=== PATIENT | male | born 1980 | race Caucasian/White ===

== ENCOUNTER 2020-09-23 15:41 | Emergency (ER) | payer BC ==
--- NOTE | 2020-09-23 17:41 | EDPHYS ---
Physician Documentation [facility] Name: Duc Johnson Age: 40 yrs Sex: Male : 1980 Arrival Date: 09/23/2020 Time: 15:44 Bed 23 Private MD: ED Physician Luan Yarbrough HPI: 09/23 17:30 This 40 yrs old Male presents to ER via Ambulatory with complaints of Ear cp Pain. 17:30 The patient presents with pain, that is acute. The complaints affect the right ear. cp Onset: The symptoms/episode began/occurred last week. Associated signs and symptoms: Pertinent positives: decreased hearing, Pertinent negatives: cough, sore throat. Severity of symptoms: in the emergency department the symptoms are unchanged despite home interventions. Historical: - Allergies: 16:15 Sulfa (Sulfonamide Antibiotics); ll1 - PMHx: 16:15 None; ll1 - PSHx: 16:15 back surgery; ll1 - Immunization history:: Flu vaccine is up to date. - Social history:: Smoking status: Patient denies any tobacco usage or history of. ROS: 17:35 Constitutional: Negative for body aches, chills, fever. cp 17:35 ENT: Positive for drainage from ear(s), ear pain, of the right ear, decreased hearing cp right ear. 17:35 Respiratory: Negative for cough. 17:35 Skin: Negative for rash. 17:35 Neuro: Negative for dizziness, headache. 17:35 All other systems are negative. Exam: 17:40 Head/Face: Normocephalic, atraumatic. cp 17:40 Constitutional: The patient appears in no acute distress, alert, awake, comfortable, non-toxic, well developed, well nourished. 17:40 Eyes: Periorbital structures: appear normal, Conjunctiva: normal, no exudate, no cp injection, Lids and lashes: appear normal, bilaterally. 17:40 ENT: External ear(s): are unremarkable, Ear canal(s): cerumen impaction, that is moderate, bilaterally, Nose: is normal, Mouth: is normal, right ear irrigated to remove cerumen and TM visualized. TM appears with erythema. 17:40 Chest/axilla: Inspection: normal. 17:40 Cardiovascular: Rate: normal. 17:40 Skin: cellulitis, is not appreciated, no rash present. Vital Signs: 16:16 BP 116 / 80; Pulse 88; Resp 17; Temp 98.5; Pulse Ox 98% ; Weight 90.72 kg; Height 5 ft. ll1 11 in. (180.34 cm); Pain 7/10; 16:16 Body Mass Index 27.89 (90.72 kg, 180.34 cm) ll1 MDM: 17:36 Patient medically screened. cp 17:40 Differential diagnosis: otitis media, otitis externa, ruptured TM, foreign body, cp cerumen impaction. 17:41 Data reviewed: vital signs, nurses notes. cp 17:41 Counseling: I had a detailed discussion with the patient and/or guardian regarding: the cp historical points, exam findings, and any diagnostic results supporting the discharge/admit diagnosis, to return to the emergency department if symptoms worsen or persist or if there are any questions or concerns that arise at home. Response to treatment: the patient's symptoms have mildly improved after treatment, and as a result, I will discharge patient. Administered Medications: No medications were administered Disposition: 17:45 Chart complete. 09/24 07:01 Co-signature as Attending Physician, Luan Yarbrough MD I agree with the assessment and kdr plan of care. Disposition: 09/23/20 17:41 Discharged to Home. Impression: Otitis media, unspecified, right ear, Impacted cerumen, right ear. - Condition is Stable. - Discharge Instructions: Earwax Buildup, Adult, Otitis Media, Adult. - Prescriptions for Amoxicillin 875 mg Oral Tablet - take 1 tablet by ORAL route every 12 hours for 10 days; 20 tablet. - Medication Reconciliation Form, Thank You Letter, Antibiotic Education, Prescription Opioid Use form. - Follow up: Adri Nichole MD; When: 2 - 3 days; Reason: Worsening of condition. - Problem is new. - Symptoms have improved. Signatures: Adri Hebert, RN RN Luan Gordon MD MD [facility] Maged Cassidy PA PA cp Fariha East RN RN ll1 Corrections: (The following items were deleted from the chart) 09/23 17:50 17:41 09/23/2020 17:41 Discharged to Home. Impression: Otitis media, unspecified, right sv ear; Impacted cerumen, right ear. Condition is Stable. Forms are Medication Reconciliation Form, Thank You Letter, Antibiotic Education, Prescription Opioid Use. Follow up: Adri Nichole; When: 2 - 3 days; Reason: Worsening of condition. Problem is new. Symptoms have improved. cp
--- NOTE | 2020-09-23 17:41 | ER ---
Nurse's Notes [facility] Name: Duc Johnson Age: 40 yrs Sex: Male : 1980 Arrival Date: 09/23/2020 Time: 15:44 Bed 23 Private MD: Diagnosis: Otitis media, unspecified, right ear;Impacted cerumen, right ear Presentation: 09/23 16:16 Chief complaint: Patient states: Decreased hearing with intermittent pain to right ear ll1 for 8 days. No fever. + drainage now. Tried OTC Debrox, no relief. + pressure now. Coronavirus screen: Client denies travel out of the [place] in the last 14 days. At this time, the client does not indicate any symptoms associated with coronavirus-19. Ebola Screen: Patient denies travel to an Ebola-affected area in the 21 days before illness onset. Initial Sepsis Screen: Does the patient meet any 2 criteria? No. Patient's initial sepsis screen is negative. Does the patient have a suspected source of infection? Yes: Other: ear pain. Risk Assessment: Do you want to hurt yourself or someone else? Patient reports no desire to harm self or others. Onset of symptoms was September 15, 2020. 16:16 Method Of Arrival: Ambulatory ll1 16:16 Acuity: NAVEEN 4 ll1 Historical: - Allergies: 16:15 Sulfa (Sulfonamide Antibiotics); ll1 - PMHx: 16:15 None; ll1 - PSHx: 16:15 back surgery; ll1 - Immunization history:: Flu vaccine is up to date. - Social history:: Smoking status: Patient denies any tobacco usage or history of. Screenin:18 Abuse screen: Denies threats or abuse. Nutritional screening: No deficits noted. ll1 Tuberculosis screening: No symptoms or risk factors identified. Fall Risk None identified. Total Pena Fall Scale indicates No Risk (0-24 pts). Assessment: 17:17 General: Appears in no apparent distress. Behavior is calm, cooperative, appropriate ll1 for age. Pain: Complains of pain in R ear Quality of pain is described as aching, pressure, Pain began about 1 week. Neuro: No deficits noted. Cardiovascular: No deficits noted. Respiratory: No deficits noted. GI: No deficits noted. EENT: Ear canal clear on right ear Reports decreased hearing in R ear pain in R ear. 17:49 Reassessment: Patient appears in no apparent distress at this time. No changes from sv previously documented assessment. Patient and/or family updated on plan of care and expected duration. Pain level reassessed. Patient is alert, oriented x 3, equal unlabored respirations, skin warm/dry/pink. Vital Signs: 16:16 BP 116 / 80; Pulse 88; Resp 17; Temp 98.5; Pulse Ox 98% ; Weight 90.72 kg; Height 5 ft. ll1 11 in. (180.34 cm); Pain 7/10; 16:16 Body Mass Index 27.89 (90.72 kg, 180.34 cm) ll1 ED Course: 15:44 Patient arrived in ED. mr 16:16 Arm band placed on. ll1 16:18 Triage completed. ll1 17:18 Maged Cassidy PA is PHCP. cp 17:18 Luan Yarbrough MD is Attending Physician. cp 17:18 Patient has correct armband on for positive identification. Bed in low position. Call ll1 light in reach. Side rails up X 1. 17:40 Adri Nichole MD is Referral Physician. cp 17:48 Adri Hebert, ABDELRAHMAN is Primary Nurse. sv 17:48 No provider procedures requiring assistance completed. Patient did not have IV access sv during this emergency room visit. Administered Medications: No medications were administered Outcome: 17:41 Discharge ordered by MD. cp 17:49 Discharged to home ambulatory. sv 17:49 Condition: stable 17:49 Discharge instructions given to patient, Instructed on discharge instructions, follow up and referral plans. medication usage, Demonstrated understanding of instructions, follow-up care, medications, Prescriptions given X 1. 17:50 Patient left the ED. sv Signatures: Adri Hebert, RN RN joie Josette Moulton mr Maged Cassidy PA PA cp Lewis, Lynsay, RN RN [facility]
[2020-09-23 23:20] VITALS: BP 116/80; TEMP 98.5; O2SAT 98
== END 2020-09-23 17:50 | disposition home or self-care (01) ==
LOC: ER 15:41
DX: H66.91 Otitis media, unspecified, right ear (principal); H61.21 Impacted cerumen, right ear; Z88.2 Allergy status to sulfonamides
CPT/HCPCS: 99282